=== PATIENT | male | born 1970 | race African-American/Black ===

== ENCOUNTER 2019-01-20 13:02 | Inpatient (IN) | payer OTHER ==
[2019-01-20 13:35] VITALS: BMI 24.3
--- NOTE | 2019-01-20 14:24 | PDOC ---
History of Present Illness - General Chief Complaint: Chest Pain Stated Complaint: Chest Pain Time Seen by Provider: 01/20/19 13:10 History Source: Patient, Family Exam Limitations: Other - History of Present Illness Initial Comments: HPI: 48 y/o male presenting to [facility] ER complaining of pain in the right and left upper outer chest regions with possible radiation to right upper arm. Pt is unable to provide a detailed HPI or history secondary to expressive aphasia from previous CVA. He was evaluated at Dr. Gill clinic today and referred to this facility for further evaluation. Pts cousin at bedside. Not well versed in pts medical history. States she lives in the same household, and that the pt has been in his normal state of health. Was able to walk with his crutches yesterday. Denies observing difficulty swallowing. Spoke with pts brother via telephone who was also unable to provide medical history but corroborated that pt has been in his usual state of health. PCP: Dr. 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 Found semi-fowlers on hospital bed. Able to answer questions with yes/no. Head: Normocephalic. No obvious external signs of trauma. Cardiovascular / Chest: Regular rate and regular rhythm. No murmur, rubs, clicks, or gallops. Peripheral pulses: radial pulses full. Tenderness to right upper outer chest wall and right upper arm; no grimace or withdrawal. No cutaneous lesions. No pretibial edema. Respiratory: Breathing unlabored. Equal chest rise and fall. Clear to auscultation bilaterally. No stridor, no wheezing, no rhonchi. Gastrointestinal: abdomen is soft, non-tender, non-distended. Neuro: Alert and oriented. Proximal and distal strength ? in right arm and right leg; 5/5 in left arm and leg. Skin: Warm, dry, and intact. Psych: Affect: appropriate. Mood: normal. MDM: *Reviewed vital signs, nursing notes, and prior visit documentation (if available). 48 y/o male presenting with chest pain versus R shoulder/upper arm pain x1 month. HPI limited secondary to expressive aphasia. Afebrile. Vitals unremarkable for hypotension or tachycardia. Physical exam as described above. Suspect likely MSK versus neuropathic pain. Low suspicion for ACS. EKG remarkable for ST segment changes in the precordial leads, which are present on previous EKG dated 20 Sep 2016. Troponin not elevated. Will not repeat at 3 hr [place] as pain has been ongoing for one month without change today. No acute cardiopulmonary pathology noted on portable CXR per ED wet read. Official radiology report pending. Will admit the pt given documented plan for PT and speech/swallow evaluation on Dr. Gill clinic note. 15:[address] Henry for admission. 15:37 Telephone consultation with [employer]OR Shanae Chopra. Verbally appraised of the pts HPI, ED course, and current plan of management. Will admit the pt to telemetry for atypical chest pain. Past History - Past Medical History Allergies/Adverse Reactions: Allergies Allergy/AdvReac Type Severity Reaction Status Date / Time No Known Allergies Allergy Verified 01/20/19 13:42 Home Medications: Ambulatory Orders Alfuzosin HCl [Uroxatral] 10 mg PO DAILY 01/20/19 Apixaban [Eliquis] 5 mg PO BID 01/20/19 Atorvastatin Calcium 40 mg PO HS 01/20/19 Clopidogrel Bisulfate [Plavix -] 75 mg PO DAILY 01/20/19 Methimazole [Tapazole -] 10 mg PO DAILY 01/20/19 Metoprolol Succinate [Toprol Xl] 50 mg PO DAILY 01/20/19 Mv-Min/Folic/Vit K/Lycop/Coq10 [Daily Multivitamin Capsule] 1 each PO DAILY 07/01 Oxybutynin Chloride [Oxybutynin Chloride ER] 5 mg PO DAILY 01/20/19 Polyethylene Glycol 3350 [Miralax (For Daily Use) -] 17 gm PO DAILY 01/20/19 Sennosides [Senna] 8.6 mg PO HS 01/20/19 Cardiac Disorders: Yes CVA: Yes (TIA'S, cva w/aphasia and right sided paralysis) COPD: No HTN: Yes Thyroid Disease: Yes - Suicide/Smoking/Psychosocial Hx Smoking History: Unknown if ever smoked Have you smoked in the past 12 months: No Number of Cigarettes Smoked Daily: 0 Information on smoking cessation initiated: No Hx Alcohol Use: No Drug/Substance Use Hx: No Substance Use Type: None Hx Substance Use Treatment: No *Physical Exam - Vital Signs Last Vital Signs Temp Pulse Resp BP Pulse Ox 97.6 F 63 18 107/67 100 01/20/19 13:14 01/20/19 13:14 01/20/19 13:14 01/20/19 13:14 01/20/19 13:14 ED Treatment Course - LABORATORY CBC & Chemistry Diagram: 01/20/19 14:00 01/20/19 14:00 - RADIOLOGY Radiology Studies Ordered: Category Date Time Status CHEST X-RAY PORTABLE* [RAD] Stat Radiology 01/20/19 13:55 Ordered *DC/Admit/Observation/Transfer Diagnosis at time of Disposition: Atypical chest pain - Discharge Dispostion Condition at time of disposition: Stable Decision to Admit order: Yes - Referrals Referrals: Bandar Henry MD [Primary Care Provider] - - Patient Instructions - Post Discharge Activity
[2019-01-20 14:29] LABS: BASO % 0.9 % (0-2.0); EOS % 6.1 % (0-4.5); HEMATOCRIT 46.6 % (35.4-49); HEMOGLOBIN 15.3 GM/dL (11.7-16.9); LYMPH % 16.1 % (8-40); MCH 27.1 pg (25.7-33.7); MCHC 32.8 g/dl (32.0-35.9); MEAN CELL VOLUME 82.5 fl (80-96); MEAN PLT VOLUME 7.6 fl (7.5-11.1); MONO % 7.9 % (3.8-10.2); PLATELET COUNT 579 K/MM3 (134-434); RBC 5.64 M/mm3 (4.00-5.60); RDW 16.9 % (11.9-15.9); WHITE BLOOD COUNT 5.4 K/mm3 (4.0-10.0)
[2019-01-20 14:56] LABS: ALBUMIN 4.2 g/dl (3.4-5.0); ALK PHOS 102 U/L (45-117); ANION GAP 5 MMOL/L (8-16); BLOOD UREA NITROGEN 9 mg/dL (7-18); CALCIUM 9.6 mg/dL (8.5-10.1); CHLORIDE 103 mmol/L (98-107); CO2 30 mmol/L (21-32); GLUCOSE,RANDOM 90 mg/dL (74-106); POTASSIUM 4.5 mmol/L (3.5-5.1); SGOT/AST 13 U/L (15-37); SGPT/ALT 27 U/L (13-61); SODIUM 138 mmol/L (136-145); TOT PROT 7.6 g/dl (6.4-8.2)
[2019-01-20 14:57] LABS: URINE APPEARANCE CLEAR; URINE BILIRUBIN NEGATIVE (NEGATIVE); URINE COLOR YELLOW; URINE GLUCOSE (UA) NEGATIVE (NEGATIVE); URINE KETONE NEGATIVE (NEGATIVE); URINE LEUK ESTERASE NEGATIVE (NEGATIVE); URINE NITRITE NEGATIVE (NEGATIVE); URINE PROTEIN NEGATIVE (NEGATIVE)
--- NOTE | 2019-01-20 15:09 | PDOC ---
Documentation entered by Diann Jaime SCRIBE, acting as scribe for Betina Clinton MD. Betina Clinton MD: This documentation has been prepared by the melvinibe, Diann Jaime SCRIBE, under my direction and personally reviewed by me in its entirety. I confirm that the documentation accurately reflects all work, treatment, procedures, and medical decision making performed by me. Attending Attestation - Resident Resident Name: QureshiGavin - ED Attending Attestation I have performed the following: I have examined & evaluated the patient, The case was reviewed & discussed with the resident, I agree w/resident's findings & plan, Exceptions are as noted - HPI HPI: 01/20/19 14:46 The patient is a 48 year old male with a significant past medical history of hypertension, hypothyroidism, DVT and CVA( with affected speech and right arm and leg weakness) who presents to the emergency department with chest pain for 1 month. The patient reports that his chest pain is distributed across his shoulders. The patient has been seeing his PCP for this complaint by which he was sent in for further evaluation. It is noted, by family member at bedside, that the patients last stroke was in 2016. No other symptoms or complaints are noted. - Physicial Exam PE: GENERAL: Awake, alert, in no acute distress HEAD: No signs of trauma EYES: PERRLA, EOMI, sclera anicteric, conjunctiva clear ENT: Auricles normal inspection, hearing grossly normal, nares patent, oropharynx clear without exudates. Moist mucosa NECK: Normal ROM, supple, no lymphadenopathy, JVD, or masses LUNGS: Breath sounds equal, clear to auscultation bilaterally. No wheezes, and no crackles HEART: Regular rate and rhythm, normal S1 and S2, no murmurs, rubs or gallops ABDOMEN: Soft, nontender, normoactive bowel sounds. No guarding, no rebound. No masses EXTREMITIES: Normal range of motion, no edema. No clubbing or cyanosis. No cords, erythema, or tenderness NEUROLOGICAL: Cranial nerves II through XII grossly intact. +Expressive aphasia. Motor and sensation intact SKIN: Warm, Dry, normal turgor, no rashes or lesions noted. - Medical Decision Making Pt with multiple medical comorbidities presenting with chest pain radiating to B /L shoulders. Will plan for admission.
--- NOTE | 2019-01-20 16:09 | EKG ---
Test Reason : Blood Pressure : / mmHG Vent. Rate : 065 BPM Atrial Rate : 065 BPM P-R Int : 190 ms QRS Dur : 096 ms QT Int : 392 ms P-R-T Axes : 044 -38 025 degrees QTc Int : 407 ms NORMAL SINUS RHYTHM LEFT AXIS DEVIATION MINIMAL VOLTAGE CRITERIA FOR LVH, MAY BE NORMAL VARIANT ANTEROSEPTAL INFARCT (CITED ON OR BEFORE 20-SEP-2016) ABNORMAL ECG WHEN COMPARED WITH ECG OF 20-SEP-2016 13:36, NO SIGNIFICANT CHANGE WAS FOUND Confirmed by DANIEL HAMMOND MD ([id number]) on 01/20/2019 4:09:15 PM Referred By: Confirmed By:DANIEL HAMMOND MD
--- NOTE | 2019-01-20 17:33 | HP ---
Admitting History and Physical - Primary Care Physician PCP: Bandar Henry - Admission Chief Complaint: Chest pain History of Present Illness: Patient is a 48 y/o male with past medical history of CVA with R sided weakness and expressive aphasia, HTN, DVT, HLD, and hypothyroidism. Patient was sent by PMD for complaints of mid chest pain radiating to B/L upper extremity for 1 month. Patient complains of having dysphagia for more than 1 month. States experiencing constipation accompanied with minor rectal bleeding and rectal pain with BM. Patient is unable to give detailed history due to expressive aphasia. 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 Cardiovascular: Yes: HTN, Hyperlipdemia Heme/Onc: Yes: Other (DVT) Endocrine: Yes: Hyperthyroidism - Smoking History Smoking history: Unknown if ever smoked Have you smoked in the past 12 months: No Aproximately how many cigarettes per day: 0 - Alcohol/Substance Use Hx Alcohol Use: No History of Substance Use: reports: Marijuana - Social History Usual Living Arrangement: Yes: Other (with brother) ADL: Family Assistance History of Recent Travel: No Home Medications - Allergies Allergies/Adverse Reactions: Allergies Allergy/AdvReac Type Severity Reaction Status Date / Time No Known Allergies Allergy Verified 01/20/19 13:42 - Home Medications Home Medications: Ambulatory Orders Alfuzosin HCl [Uroxatral] 10 mg PO DAILY 01/20/19 Apixaban [Eliquis] 5 mg PO BID 01/20/19 Atorvastatin Calcium 40 mg PO HS 01/20/19 Clopidogrel Bisulfate [Plavix -] 75 mg PO DAILY 01/20/19 Methimazole [Tapazole -] 10 mg PO DAILY 01/20/19 Metoprolol Succinate [Toprol Xl] 50 mg PO DAILY 01/20/19 Mv-Min/Folic/Vit K/Lycop/Coq10 [Daily Multivitamin Capsule] 1 each PO DAILY 07/01 Oxybutynin Chloride [Oxybutynin Chloride ER] 5 mg PO DAILY 01/20/19 Polyethylene Glycol 3350 [Miralax (For Daily Use) -] 17 gm PO DAILY 01/20/19 Sennosides [Senna] 8.6 mg PO HS 01/20/19 Review of Systems - Review of Systems Constitutional: reports: Weakness Eyes: reports: No Symptoms HENT: reports: No Symptoms Neck: reports: No Symptoms Cardiovascular: reports: Chest Pain, Shortness of Breath Respiratory: reports: SOB Gastrointestinal: reports: Constipation, Dysphagia, Rectal Bleeding Genitourinary: reports: Hematuria Breasts: reports: No Symptoms Reported Musculoskeletal: reports: Muscle Weakness Integumentary: reports: No Symptoms Neurological: reports: Pre-Existing Deficit Endocrine: reports: No Symptoms Hematology/Lymphatic: reports: No Symptoms Psychiatric: reports: No Symptoms Physical Examination Vital Signs: Vital Signs Temperature 97.6 F 01/20/19 13:14 Pulse Rate 63 01/20/19 13:14 Respiratory Rate 18 01/20/19 13:14 Blood Pressure 107/67 01/20/19 13:14 O2 Sat by Pulse Oximetry (%) 100 01/20/19 13:14 Constitutional: Yes: No Distress, Calm Eyes: Yes: Conjunctiva Clear HENT: Yes: Atraumatic Cardiovascular: Yes: Regular Rate and Rhythm Respiratory: Yes: Regular, CTA Bilaterally Gastrointestinal: Yes: Normal Bowel Sounds, Soft Musculoskeletal: Yes: Muscle Weakness (RUE and RLE) Extremities: Yes: WNL Edema: No Neurological: Yes: Alert, Aphasia (expressive), Pre-Existing Deficit Psychiatric: Yes: Alert Labs: CBC, BMP 01/20/19 14:00 01/20/19 14:00 Imaging - Results Chest X-ray: Report Reviewed EKG: Report Reviewed Problem List - Problems (1) Dysphagia Assessment/Plan: -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 -GI consult -dysphagia diet -aspiration precaution Code(s): R13.10 - DYSPHAGIA, UNSPECIFIED (2) Hematuria Assessment/Plan: -UA neg Code(s): R31.9 - HEMATURIA, UNSPECIFIED (3) Constipation Assessment/Plan: -stool softeners Code(s): K59.00 - CONSTIPATION, UNSPECIFIED (4) Atypical chest pain Assessment/Plan: -tele monitoring -cardiology consult -trop neg--repeat trop in AM Code(s): R07.89 - OTHER CHEST PAIN (5) DVT (deep venous thrombosis) Assessment/Plan: -continue Eliquis Code(s): I82.409 - ACUTE EMBOLISM AND THOMBOS UNSP DEEP VN UNSP LOWER EXTREMITY (6) H/O: CVA (cerebrovascular accident) Assessment/Plan: -continue Plavix and Atorvastatin Code(s): Z86.73 - PRSNL HX OF TIA (TIA), AND CEREB INFRC W/O RESID DEFICITS (7) HLD (hyperlipidemia) Assessment/Plan: -A Code(s): E78.5 - HYPERLIPIDEMIA, UNSPECIFIED Qualifiers: Hyperlipidemia type: Mixed hyperlipidemia (8) HTN (hypertension) Assessment/Plan: -Atorvastatin -lipid panel Code(s): I10 - ESSENTIAL (PRIMARY) HYPERTENSION Assessment/Plan see problem list dvt ppx PT
[2019-01-20] MEDS ORDERED: SENNOSIDES 8.6MG TABLET (FP) PO SCH (22:00)
[2019-01-20] MEDS ORDERED: ATORVASTATIN CA 40 MG TABLET (FP) PO SCH (22:00)
[2019-01-20] MEDS: APIXABAN 5 MG TABLET PO SCH (23:05)
[2019-01-21 07:56] LABS: BASO % 1.3 % (0-2.0); EOS % 6.8 % (0-4.5); HEMATOCRIT 44.1 % (35.4-49); HEMOGLOBIN 14.7 GM/dL (11.7-16.9); MCH 27.3 pg (25.7-33.7); MCHC 33.3 g/dl (32.0-35.9); MEAN PLT VOLUME 7.6 fl (7.5-11.1); MONO % 7.7 % (3.8-10.2); NEUT % 64.2 % (42.8-82.8); PLATELET COUNT 550 K/MM3 (134-434); RBC 5.37 M/mm3 (4.00-5.60); RDW 16.5 % (11.9-15.9); WHITE BLOOD COUNT 5.4 K/mm3 (4.0-10.0)
[2019-01-21] MEDS ORDERED: PT OWN MED DRAWER 7, Y5N ONE (08:28)
[2019-01-21] MEDS ORDERED: TAMSULOSIN HCL 0.4 MG CAP PO SCH ×2 (08:30→08:45)
[2019-01-21 08:39] LABS: ALBUMIN 3.8 g/dl (3.4-5.0); ALK PHOS 90 U/L (45-117); ANION GAP 6 MMOL/L (8-16); BILIRUBIN,TOTAL 2.9 mg/dL (0.2-1); BLOOD UREA NITROGEN 10 mg/dL (7-18); CALCIUM 9.1 mg/dL (8.5-10.1); CHLORIDE 104 mmol/L (98-107); CHOLESTEROL 70 mg/dL (50-200); CO2 28 mmol/L (21-32); CREATININE 1.1 mg/dL (0.55-1.3); GLUCOSE,RANDOM 84 mg/dL (74-106); HDL CHOLESTEROL 30 mg/dL (40-60); MAGNESIUM 2.4 mg/dL (1.8-2.4); PHOSPHOROUS 3.4 mg/dL (2.5-4.9); POTASSIUM 3.8 mmol/L (3.5-5.1); SGOT/AST 13 U/L (15-37); SGPT/ALT 23 U/L (13-61); SODIUM 138 mmol/L (136-145); TRIGLYCERIDES 65 mg/dL (0-150)
[2019-01-21] MEDS: APIXABAN 5 MG TABLET PO SCH (09:41)
[2019-01-21 09:49] VITALS: BP 121/50; PULSE 76; TEMP 98
[2019-01-21] MEDS ORDERED: METHIMAZOLE 10 MG TABLET (FP) PO SCH (10:00)
[2019-01-21] MEDS ORDERED: SOLIFENACIN SUCCINATE 5 MG TAB (FP) PO SCH (10:00)
[2019-01-21] MEDS ORDERED: CLOPIDOGREL BISULFATE 75 MG TABLET (FP) PO SCH (10:00)
[2019-01-21] MEDS ORDERED: POLYETHYLENE GLYCOL 3350 119 GM BTL PO SCH (10:00)
[2019-01-21] MEDS ORDERED: MULTIVITAMINS THER W-MINERALS COMBO TABLET (FP) PO SCH (10:00)
--- NOTE | 2019-01-21 10:34 | CON.CARD ---
Cardiology Consult (text) - Consultation Consultation Note: cc: cp hpi: 48 m hx hyperthyroid, hld, h/o multiple cva's (10/2014 thought to be cardioembolic, non obs carotids, echo with AK of apex, but santosh w/o source, tele benign, started on AC then), residual deficits (right sided weakness, slurred speech), syst chf, chronic dvt, myeloproliferative disorder/JAK2+ here with cp. Hx limited by pt's aphasia but per pt and charts he has been having several days of pain in right shoulder area that moves across upper chest and in left shoulder as well. No sob. pmh/psh:per hpi social: no tob fam: no premature cad or scd ros: per hpi; unable to obtain 2/2 aphasia meds: Home Medications Medication Instructions Recorded Alfuzosin HCl [Uroxatral] 10 mg PO DAILY 01/20/19 Apixaban [Eliquis] 5 mg PO BID 01/20/19 Atorvastatin Calcium 40 mg PO HS 01/20/19 Clopidogrel Bisulfate [Plavix -] 75 mg PO DAILY 01/20/19 Methimazole [Tapazole -] 10 mg PO DAILY 01/20/19 Metoprolol Succinate [Toprol Xl] 50 mg PO DAILY 01/20/19 Mv-Min/Folic/Vit K/Lycop/Coq10 1 each PO DAILY 01/20/19 [Daily Multivitamin Capsule] Oxybutynin Chloride [Oxybutynin 5 mg PO DAILY 01/20/19 Chloride ER] Polyethylene Glycol 3350 [Miralax 17 gm PO DAILY 01/20/19 (For Daily Use) -] Sennosides [Senna] 8.6 mg PO HS 01/20/19 pe: Vital Signs Period Temp Pulse Resp BP Sys/Le Pulse Ox Last 24 Hr 97.6 F-98.6 F 60-92 16-20 98-135/50-78 97-100 + aphasia, rt sided weakness nad, no jvd rrr s1s2 no mrg cta bl, poor effort pos dp pt, no carotid bruits no jaundice diaphoresis no le e/c/c abd nt nd pos bs + dp/pt no carotid bruits reproducible cp with palpation Laboratory Last Values WBC 5.4 K/mm3 (4.0-10.0) 01/21/19 07:10 RBC 5.37 M/mm3 (4.00-5.60) 01/21/19 07:10 Hgb 14.7 GM/dL (11.7-16.9) 01/21/19 07:10 Hct 44.1 % (35.4-49) 01/21/19 07:10 MCV 82.0 fl (80-96) 01/21/19 07:10 MCH 27.3 pg (25.7-33.7) 01/21/19 07:10 MCHC 33.3 g/dl (32.0-35.9) 01/21/19 07:10 RDW 16.5 % (11.9-15.9) H 01/21/19 07:10 Plt Count 550 K/MM3 (134-434) H 01/21/19 07:10 MPV 7.6 fl (7.5-11.1) 01/21/19 07:10 Absolute Neuts (auto) 3.5 K/mm3 (1.5-8.0) 01/21/19 07:10 Neutrophils % 64.2 % (42.8-82.8) 01/21/19 07:10 Lymphocytes % 20.0 % (8-40) D 01/21/19 07:10 Monocytes % 7.7 % (3.8-10.2) 01/21/19 07:10 Eosinophils % 6.8 % (0-4.5) H 01/21/19 07:10 Basophils % 1.3 % (0-2.0) 01/21/19 07:10 Nucleated RBC % 0 % (0-0) 01/21/19 07:10 Sodium 138 mmol/L (136-145) 01/21/19 07:10 Potassium 3.8 mmol/L (3.5-5.1) 01/21/19 07:10 Chloride 104 mmol/L (98-107) 01/21/19 07:10 Carbon Dioxide 28 mmol/L (21-32) 01/21/19 07:10 Anion Gap 6 MMOL/L (8-16) L 01/21/19 07:10 BUN 10 mg/dL (7-18) 01/21/19 07:10 Creatinine 1.1 mg/dL (0.55-1.3) 01/21/19 07:10 Est GFR (CKD-EPI)AfAm 90.24 05/11/19 07:10 Est GFR (CKD-EPI)NonAf 77.86 01/21/19 07:10 POC Glucometer 103 UNITS (80-120) 01/21/19 06:47 Random Glucose 84 mg/dL (74-106) 01/21/19 07:10 Hemoglobin A1c % 5.3 % (4.2-6.3) 01/21/19 07:10 Calcium 9.1 mg/dL (8.5-10.1) 01/21/19 07:10 Phosphorus 3.4 mg/dL (2.5-4.9) 01/21/19 07:10 Magnesium 2.4 mg/dL (1.8-2.4) 01/21/19 07:10 Total Bilirubin 2.9 mg/dL (0.2-1) H 01/21/19 07:10 AST 13 U/L (15-37) L 01/21/19 07:10 ALT 23 U/L (13-61) 01/21/19 07:10 Alkaline Phosphatase 90 U/L (45-117) 01/21/19 07:10 Creatine Kinase 117 U/L (26-308) 01/21/19 07:10 Troponin I < 0.02 ng/ml (0.00-0.05) 01/21/19 07:10 Total Protein 7.0 g/dl (6.4-8.2) 01/21/19 07:10 Albumin 3.8 g/dl (3.4-5.0) 01/21/19 07:10 Triglycerides 65 mg/dL (0-150) 01/21/19 07:10 Cholesterol 70 mg/dL (50-200) 01/21/19 07:10 Total LDL Cholesterol 41 mg/dL (5-100) 01/21/19 07:10 HDL Cholesterol 30 mg/dL (40-60) L 01/21/19 07:10 TSH 4.55 uIU/ml (0.358-3.74) H D 01/21/19 07:10 Urine Color Yellow 01/20/19 14:30 Urine Appearance Clear 01/20/19 14:30 Urine pH 5.0 (5.0-8.0) 01/20/19 14:30 Ur Specific Melissa 1.009 (1.010-1.035) L 01/20/19 14:30 Urine Protein Negative (NEGATIVE) 01/20/19 14:30 Urine Glucose (UA) Negative (NEGATIVE) 01/20/19 14:30 Urine Ketones Negative (NEGATIVE) 01/20/19 14:30 Urine Blood Negative (NEGATIVE) 01/20/19 14:30 Urine Nitrite Negative (NEGATIVE) 01/20/19 14:30 Urine Bilirubin Negative (NEGATIVE) 01/20/19 14:30 Urine Urobilinogen 1.0 mg/dL (0.2-1.0) 01/20/19 14:30 Ur Leukocyte Esterase Negative (NEGATIVE) 01/20/19 14:30 EKG: sr, maddy septal infarct pattern, no sig change from 2017, nl intervals tele: SR echo 04/2016: mod dec lvef (global with apical AK), 1+ MR/TR, mild ao dilation. echo 01/2015: nl lv/rv, mild lae, no sig valve path, trace pericardial eff echo 10/2014: mild dec lvef, apical ak/hk, nl rv, mild mac, mild mr, mild tr cxr: clear lungs A/P: 48 m hx hyperthyroid, hld, h/o multiple cva's (10/2014 thought to be cardioembolic, non obs carotids, echo with AK of apex, but santosh w/o source, tele benign, started on AC then), residual deficits (right sided weakness, slurred speech), syst chf, chronic dvt, myeloproliferative disorder/JAK2+ here with cp. cp: -atypical cp, seems msk -no signs acs, trops neg2 and ecg similar to priors -no further cardiac testing needed at this time for this cp cva's: -h/o recurrent CVA's. -10/2014 thought to be cardioembolic, non obs carotids, echo with AK of apex, but santosh w/o source, tele benign, started on AC then, remains on ac and plavix for recurrent cva's chronic syst chf: -echo from 10/2014 during time of acute large cva showed mildly reduced lvef with apical wma's. Suspected to be NICM in the past (had h/o etoh abuse), had brief normalization of EF in 2014 and subsequent weakening of function in 2015. - Appears euvolemic. CE's negative. -cont bb HTN -stable hld: -cont statin hx dvts: -on ac
--- NOTE | 2019-01-21 11:16 | PN ---
Progress Note, Physician Chief Complaint: BL shoulder pain History of Present Illness: NAD Seen and cleared by cardiology BL shoulder pain musculoskeletal - Current Medication List Current Medications: Active Medications Apixaban (Eliquis -) 5 mg PO BID [facility] Last Admin: 01/21/19 09:41 Dose: 5 mg Atorvastatin Calcium (Lipitor -) 40 mg PO HS [facility] Last Admin: 01/20/19 23:06 Dose: 40 mg Clopidogrel Bisulfate (Plavix -) 75 mg PO DAILY [facility] Last Admin: 01/21/19 09:41 Dose: 75 mg Methimazole (Tapazole -) 10 mg PO DAILY [facility] Last Admin: 01/21/19 09:41 Dose: 10 mg Metoprolol Succinate (Toprol Xl -) 50 mg PO DAILY [facility] Last Admin: 01/21/19 09:41 Dose: 50 mg Multivitamins/Minerals (Theragran-M) 1 each PO DAILY [facility] Last Admin: 01/21/19 09:40 Dose: 1 each Polyethylene Glycol (Miralax (For Daily Use) -) 17 gm PO DAILY [facility] Last Admin: 01/21/19 09:42 Dose: Not Given Senna (Senna -) 1 tab PO HS [facility] Last Admin: 01/20/19 23:06 Dose: 1 tab Solifenacin (Vesicare -) 5 mg PO DAILY [facility] Last Admin: 01/21/19 09:40 Dose: 5 mg Tamsulosin HCl (Flomax -) 0.4 mg PO DAILY@0830 [facility] Last Admin: 01/21/19 08:49 Dose: 0.4 mg - Objective Vital Signs: Vital Signs Temperature 98 F 01/21/19 09:48 Pulse Rate 76 01/21/19 09:48 Respiratory Rate 18 01/21/19 09:48 Blood Pressure 121/50 L 01/21/19 09:48 O2 Sat by Pulse Oximetry (%) 97 01/20/19 22:00 Constitutional: Yes: Well Nourished, No Distress, Calm Cardiovascular: Yes: Regular Rate and Rhythm Respiratory: Yes: Regular Gastrointestinal: Yes: Normal Bowel Sounds, Soft Genitourinary: Yes: WNL Musculoskeletal: Yes: Muscle Weakness (left hemiperesis) Edema: No Peripheral Pulses WNL: Yes Neurological: Yes: Alert, Pre-Existing Deficit Psychiatric: Yes: Alert Labs: CBC, BMP 01/21/19 07:10 01/21/19 07:10 Assessment/Plan (1) Dysphagia Assessment/Plan: -chronic 2/2 to previous CVA -tolerated pureed diet -aspiration precaution Code(s): R13.10 - DYSPHAGIA, UNSPECIFIED (2) Hematuria Assessment/Plan: -UA neg Code(s): R31.9 - HEMATURIA, UNSPECIFIED (3) Constipation Assessment/Plan: -stool softeners Code(s): K59.00 - CONSTIPATION, UNSPECIFIED (4) Atypical chest pain Assessment/Plan: -tele monitoring -cardiology consult -cleared by cardiology -trop neg Code(s): R07.89 - OTHER CHEST PAIN (5) DVT (deep venous thrombosis) Assessment/Plan: -continue Eliquis Code(s): I82.409 - ACUTE EMBOLISM AND THOMBOS UNSP DEEP VN UNSP LOWER EXTREMITY (6) H/O: CVA (cerebrovascular accident) Assessment/Plan: -continue Plavix and Atorvastatin Code(s): Z86.73 - PRSNL HX OF TIA (TIA), AND CEREB INFRC W/O RESID DEFICITS (7) HLD (hyperlipidemia) Assessment/Plan: -Continue atorvastatin 40 mg po HS Code(s): E78.5 - HYPERLIPIDEMIA, UNSPECIFIED Qualifiers: Hyperlipidemia type: Mixed hyperlipidemia (8) HTN (hypertension) Assessment/Plan: -Continue metoprolol 50 mg po daily Code(s): I10 - ESSENTIAL (PRIMARY) HYPERTENSION D/C home, brother notified
--- NOTE | 2019-01-21 11:18 | DS ---
Physical Examination Vital Signs: Vital Signs Temperature 98 F 01/21/19 09:48 Pulse Rate 76 01/21/19 09:48 Respiratory Rate 18 01/21/19 09:48 Blood Pressure 121/50 L 01/21/19 09:48 O2 Sat by Pulse Oximetry (%) 97 01/20/19 22:00 Findings/Remarks: Patient is a 48 y/o male with past medical history of CVA with R sided weakness and expressive aphasia, HTN, DVT, HLD, and hypothyroidism. Patient was sent by PMD for complaints of mid chest pain radiating to B/L upper extremity for 1 month. Patient complains of having dysphagia for more than 1 month. States experiencing constipation accompanied with minor rectal bleeding and rectal pain with BM. Patient is unable to give detailed history due to expressive aphasia. Constitutional: Yes: Well Nourished, No Distress, Calm Cardiovascular: Yes: Regular Rate and Rhythm Respiratory: Yes: Regular Gastrointestinal: Yes: Normal Bowel Sounds, Soft Musculoskeletal: Yes: Other (right hemiperesis) Extremities: Yes: WNL Edema: No Peripheral Pulses WNL: Yes Neurological: Yes: Alert, Pre-Existing Deficit Psychiatric: Yes: Alert Labs: CBC, BMP 01/21/19 07:10 01/21/19 07:10 Discharge Summary Reason For Visit: ATYPICAL CHEST PAIN Current Active Problems Atypical chest pain (Acute) Constipation (Acute) Dysphagia (Acute) Hematuria (Acute) Hospital Course: Laboratory Last Values WBC 5.4 K/mm3 (4.0-10.0) 01/21/19 07:10 RBC 5.37 M/mm3 (4.00-5.60) 01/21/19 07:10 Hgb 14.7 GM/dL (11.7-16.9) 01/21/19 07:10 Hct 44.1 % (35.4-49) 01/21/19 07:10 MCV 82.0 fl (80-96) 01/21/19 07:10 MCH 27.3 pg (25.7-33.7) 01/21/19 07:10 MCHC 33.3 g/dl (32.0-35.9) 01/21/19 07:10 RDW 16.5 % (11.9-15.9) H 01/21/19 07:10 Plt Count 550 K/MM3 (134-434) H 01/21/19 07:10 MPV 7.6 fl (7.5-11.1) 01/21/19 07:10 Absolute Neuts (auto) 3.5 K/mm3 (1.5-8.0) 01/21/19 07:10 Neutrophils % 64.2 % (42.8-82.8) 01/21/19 07:10 Lymphocytes % 20.0 % (8-40) D 01/21/19 07:10 Monocytes % 7.7 % (3.8-10.2) 01/21/19 07:10 Eosinophils % 6.8 % (0-4.5) H 01/21/19 07:10 Basophils % 1.3 % (0-2.0) 01/21/19 07:10 Nucleated RBC % 0 % (0-0) 01/21/19 07:10 Sodium 138 mmol/L (136-145) 01/21/19 07:10 Potassium 3.8 mmol/L (3.5-5.1) 01/21/19 07:10 Chloride 104 mmol/L (98-107) 01/21/19 07:10 Carbon Dioxide 28 mmol/L (21-32) 01/21/19 07:10 Anion Gap 6 MMOL/L (8-16) L 01/21/19 07:10 BUN 10 mg/dL (7-18) 01/21/19 07:10 Creatinine 1.1 mg/dL (0.55-1.3) 01/21/19 07:10 Est GFR (CKD-EPI)AfAm 90.24 01/21/19 07:10 Est GFR (CKD-EPI)NonAf 77.86 01/21/19 07:10 POC Glucometer 103 UNITS (80-120) 01/21/19 06:47 Random Glucose 84 mg/dL (74-106) 01/21/19 07:10 Hemoglobin A1c % 5.3 % (4.2-6.3) 01/21/19 07:10 Calcium 9.1 mg/dL (8.5-10.1) 01/21/19 07:10 Phosphorus 3.4 mg/dL (2.5-4.9) 01/21/19 07:10 Magnesium 2.4 mg/dL (1.8-2.4) 01/21/19 07:10 Total Bilirubin 2.9 mg/dL (0.2-1) H 01/21/19 07:10 AST 13 U/L (15-37) L 01/21/19 07:10 ALT 23 U/L (13-61) 01/21/19 07:10 Alkaline Phosphatase 90 U/L (45-117) 01/21/19 07:10 Creatine Kinase 117 U/L (26-308) 01/21/19 07:10 Troponin I < 0.02 ng/ml (0.00-0.05) 01/21/19 07:10 Total Protein 7.0 g/dl (6.4-8.2) 01/21/19 07:10 Albumin 3.8 g/dl (3.4-5.0) 01/21/19 07:10 Triglycerides 65 mg/dL (0-150) 01/21/19 07:10 Cholesterol 70 mg/dL (50-200) 01/21/19 07:10 Total LDL Cholesterol 41 mg/dL (5-100) 01/21/19 07:10 HDL Cholesterol 30 mg/dL (40-60) L 01/21/19 07:10 TSH 4.55 uIU/ml (0.358-3.74) H D 01/21/19 07:10 Urine Color Yellow 01/20/19 14:30 Urine Appearance Clear 01/20/19 14:30 Urine pH 5.0 (5.0-8.0) 01/20/19 14:30 Ur Specific [place] 1.009 (1.010-1.035) L 01/20/19 14:30 Urine Protein Negative (NEGATIVE) 01/20/19 14:30 Urine Glucose (UA) Negative (NEGATIVE) 01/20/19 14:30 Urine Ketones Negative (NEGATIVE) 01/20/19 14:30 Urine Blood Negative (NEGATIVE) 01/20/19 14:30 Urine Nitrite Negative (NEGATIVE) 01/20/19 14:30 Urine Bilirubin Negative (NEGATIVE) 01/20/19 14:30 Urine Urobilinogen 1.0 mg/dL (0.2-1.0) 01/20/19 14:30 Ur Leukocyte Esterase Negative (NEGATIVE) 01/20/19 14:30 Vital Signs Temp 98 F 01/21/19 09:48 Pulse 76 01/21/19 09:48 Resp 18 01/21/19 09:48 BP 121/50 L 01/21/19 09:48 Pulse Ox 97 01/20/19 22:00 Intake & Output 01/20/19 01/20/19 01/21/19 11:59 23:59 11:59 Intake Total 240 130 Balance 240 130 Weight 90.718 kg 91.626 kg Intake: IV 10 saline lock 10 Oral 240 120 Other: Voiding Method Urinal Urinal # Unmeasured Voids Void 1 Bowel Movement No No Height 6 ft 4 in Body Mass Index (BMI) 24.3 Weight Measurement Method Stated by Patient Standing Scale Condition: Stable - Instructions Disposition: VNS/HOME HEALTH CARE - Home Medications Comprehensive Discharge Medication List: Ambulatory Orders Alfuzosin HCl [Uroxatral] 10 mg PO DAILY 01/20/19 Apixaban [Eliquis] 5 mg PO BID 01/20/19 Atorvastatin Calcium 40 mg PO HS 01/20/19 Clopidogrel Bisulfate [Plavix -] 75 mg PO DAILY 01/20/19 Methimazole [Tapazole -] 10 mg PO DAILY 01/20/19 Metoprolol Succinate [Toprol Xl] 50 mg PO DAILY 01/20/19 Mv-Min/Folic/Vit K/Lycop/Coq10 [Daily Multivitamin Capsule] 1 each PO DAILY 07/01 Oxybutynin Chloride [Oxybutynin Chloride ER] 5 mg PO DAILY 01/20/19 Polyethylene Glycol 3350 [Miralax (For Daily Use) -] 17 gm PO DAILY 01/20/19 Sennosides [Senna] 8.6 mg PO HS 01/20/19
== END 2019-01-21 13:34 | disposition home health service (06) | DRG 203 ==
LOC: JER 13:02 → JERBED 15:22 → J4W 18:24
PROVIDERS: ADMIT Family Medicine; ATTEND Family Medicine
DX: R07.89 Other chest pain (principal); I69.351 Hemiplegia and hemiparesis following cerebral infarction affecting right dominant side; I11.0 Hypertensive heart disease with heart failure; I50.22 Chronic systolic (congestive) heart failure; C94.6 Myelodysplastic disease, not elsewhere classified; R13.10 Dysphagia, unspecified; I69.391 Dysphagia following cerebral infarction; I69.320 Aphasia following cerebral infarction; E03.9 Hypothyroidism, unspecified; Z86.718 Personal history of other venous thrombosis and embolism; E78.5 Hyperlipidemia, unspecified; K59.00 Constipation, unspecified
CPT/HCPCS: 36415; 71045-TC-FY; 80053; 80061; 81003; 82550; 82962; 83036; 83721; 83735; 84100; 84436; 84439; 84443; 84484; 85025; 93005; 93010; 99284-25

== ENCOUNTER 2023-06-15 21:44 | Emergency (ER) | payer OTHER ==
[2023-06-15 21:56] VITALS: BP 133/76; PULSE 63; RESP 19; TEMP 97.7; BMI 29.2
[2023-06-15 23:05] LABS: BASO % 0.7 % (0-2.0); EOS % 4.6 % (0-4.5); HEMATOCRIT 39.4 % (35.4-49); HEMOGLOBIN 13.7 GM/dL (11.7-16.9); LYMPH % 25.7 % (8-40); MCH 35.6 pg (25.7-33.7); MCHC 34.8 g/dl (32.0-35.9); MEAN CELL VOLUME 102.5 fl (80-96); MEAN PLT VOLUME 6.7 fl (7.5-11.1); MONO % 8.3 % (3.8-10.2); NEUT % 60.7 % (42.8-82.8); PLATELET COUNT 490 10^3/uL (134-434); RBC 3.84 M/mm3 (4.00-5.60); RDW 14.2 % (11.9-15.9); WHITE BLOOD COUNT 4.4 K/mm3 (4.0-10.0)
== END 2023-06-15 23:54 | disposition home or self-care (01) ==
LOC: JER 21:44
DX: K62.5 Hemorrhage of anus and rectum (principal)
CPT/HCPCS: 36415; 85025; 99283-25

== ENCOUNTER 2024-08-25 10:35 | Day surgery (SDC) | payer OTHER ==
[2024-08-25] MEDS: FERRIC CARBOXYMALTOSE 750 MG in SODIUM CHLORIDE 250 ML IVPB ONE (11:05)
[2024-08-25 14:22] VITALS: BP 112/60; PULSE 59; RESP 20; TEMP 98.3
== END 2024-08-25 12:20 | disposition home or self-care (01) ==
LOC: JONCCHEMO 10:35 → J7W 10:38 → JONCCHEMO 12:20
PROVIDERS: ATTEND Internal Medicine Hematology & Oncology
PROC: 3E013GC Introduction of Other Therapeutic Substance into Subcutaneous Tissue, Percutaneous Approach (ICD-10-PCS; principal; 2024-08-25)
DX: D50.9 Iron deficiency anemia, unspecified (principal)
CPT/HCPCS: 96365; J1439

== ENCOUNTER 2024-09-01 10:43 | Day surgery (SDC) | payer OTHER ==
[2024-09-01] MEDS: FERRIC CARBOXYMALTOSE 750 MG in SODIUM CHLORIDE 250 ML IVPB ONE (10:40)
[2024-09-01 17:40] VITALS: BP 112/60; PULSE 72; RESP 16; TEMP 98.2
== END 2024-09-01 11:45 | disposition home or self-care (01) ==
LOC: JONCCHEMO 10:43 → J7W 10:44 → JONCCHEMO 11:45
PROVIDERS: ATTEND Internal Medicine Hematology & Oncology
PROC: 3E033GC Introduction of Other Therapeutic Substance into Peripheral Vein, Percutaneous Approach (ICD-10-PCS; principal; 2024-09-01)
DX: D50.0 Iron deficiency anemia secondary to blood loss (chronic) (principal); D47.1 Chronic myeloproliferative disease; I10 Essential (primary) hypertension
CPT/HCPCS: 96365; J1439